=== PATIENT | female | born 1970 | race African-American/Black ===

== ENCOUNTER 2017-02-12 22:39 | Emergency (ER) | payer BC, MEDICAID, OTHER ==
[2017-02-12] MEDS ORDERED: Famotidine 20 MG Tab PO ONE (22:44)
--- NOTE | 2017-02-12 22:45 | EDM.PDOC ---
ED HPI Allergic Reaction - General Chief Complaint: Allergic Reaction Stated Complaint: RASH Time Seen by Provider: 02/12/17 22:45 Source of Information: Reports: Patient - History of Present Illness INITIAL COMMENTS - FREE TEXT/NARRATIVE: HISTORY AND PHYSICAL: History of present illness: [] Patient presents with 4-5 days of urticaria and itchy rash that began after eating ice cream, she does not contribute to any new clothes other foods or detergents No fever nausea vomiting chills sweats no chest pain shortness breath headache dizziness or palpitation no stridor no lip swelling tongue swelling or oral pharyngeal edema Patient has tried oral Benadryl at 12 mg x1 , she becomes quite drowsy even at this low dose Review of systems: As per history of present illness and below otherwise all systems reviewed and negative. Past medical history: As per history of present illness and as reviewed below otherwise noncontributory. Surgical history: As per history of present illness and as reviewed below otherwise noncontributory. Social history: No reported history of drug or alcohol abuse. Family history: As per history of present illness and as reviewed below otherwise noncontributory. Physical exam: HEENT: Atraumatic, normocephalic, pupils reactive, negative for conjunctival pallor or scleral icterus, mucous membranes moist, throat clear, neck supple, nontender, trachea midline. No lip swelling tongue swelling or oral pharyngeal edema Lungs: Clear to auscultation, breath sounds equal bilaterally, chest nontender. Heart: S1S2, regular, negative for clicks, rubs, or JVD. Abdomen: Soft, nondistended, nontender. Negative for masses or hepatosplenomegaly. Negative for costovertebral tenderness. Pelvis: Stable nontender. Genitourinary: Deferred. Rectal: Deferred. Extremities: Atraumatic, negative for cords or calf pain. Neurovascular unremarkable. Neuro: Awake, alert, oriented. Cranial nerves II through XII unremarkable. Cerebellum unremarkable. Motor and sensory unremarkable throughout. Exam nonfocal. Diagnostics: [] Therapeutics: [] Famotidine 20 mg by mouth now Solu-Medrol 125 mg IM, patient request Zantac 150 mg by mouth twice a day Benadryl 50 mg every 6 EpiPen provided via prescription Impression: [] Urticaria Definitive disposition and diagnosis as appropriate pending reevaluation and review of above. - Related Data Allergies/ADRs: Allergies Allergy/AdvReac Type Severity Reaction Status Date / Time aspirin Allergy Swelling Verified 02/12/17 22:43 Home Meds: Home Meds . [No Known Home Meds] 02/12/17 [History] ED ROS ALLERGIC REACTION - Review of Systems Review Of Systems: ROS reveals no pertinent complaints other than HPI. ED EXAM GENERAL NO PERIP PULSE - Physical Exam Exam: See Below Course - Vital Signs Last Recorded V/S: Last Vital Signs Temp 36.6 C 02/12/17 22:41 Pulse 97 02/12/17 22:41 Resp 16 02/12/17 22:41 BP 135/71 02/12/17 22:41 Pulse Ox 97 02/12/17 22:41 - Orders/Labs/Meds Orders: Active Orders 24 hr Category Date Time Status methylPREDNISolone Sod Succ [Solu-MEDROL] Med 02/12/17 23:00 Once 125 mg IM ONETIME ONE Meds: Medications Discontinued Medications Generic Name Dose Route Start Last Admin Trade Name Freq PRN Reason Stop Dose Admin Famotidine 20 mg 02/12/17 22:44 02/12/17 22:51 Pepcid PO 02/12/17 22:45 20 mg ONETIME ONE Administration Departure - Departure Time of Disposition: 23:02 Disposition: Home, Self-Care 01 Condition: good Clinical Impression: Urticaria Additional Instructions: Zantac 150 mg by mouth twice a day as needed Benadryl 50 mg every 6 hours as tolerated EpiPen prescription provided Return if lip swelling tongue swelling or difficulty breathing If you would have to use the EpiPen return to emergency room immediately Followup with primary care in 2 weeks Consider allergy testing The following information is given to patients seen in the emergency department who are being discharged to home. This information is to outline your options for follow-up care. We provide all patients seen in our emergency department with a follow-up referral. The need for follow-up, as well as the timing and circumstances, are variable depending upon the specifics of your emergency department visit. If you don't have a primary care physician on staff, we will provide you with a referral. We always advise you to contact your personal physician following an emergency department visit to inform them of the circumstance of the visit and for follow-up with them and/or the need for any referrals to a consulting specialist. The emergency department will also refer you to a specialist when appropriate. This referral assures that you have the opportunity for follow-up care with a specialist. All of these measure are taken in an effort to provide you with optimal care, which includes your follow-up. Under all circumstances we always encourage you to contact your private physician who remains a resource for coordinating your care. When calling for follow-up care, please make the office aware that this follow-up is from your recent emergency room visit. If for any reason you are refused follow-up, please contact the [facility] emergency department at and asked to speak to the emergency department charge nurse. - My Orders Last 24 Hours: My Active Orders 02/12/17 23:00 methylPREDNISolone Sod Succ [Solu-MEDROL] 125 mg IM ONETIME ONE - Assessment/Plan Last 24 Hours: My Active Orders 02/12/17 23:00 methylPREDNISolone Sod Succ [Solu-MEDROL] 125 mg IM ONETIME ONE
[2017-02-12] MEDS ORDERED: methylPREDNISolone Sodium Succinate 125 MG/2 ML SDV IM ONE (23:00)
[2017-02-12 23:40] VITALS: BP 129/60
== END 2017-02-12 23:35 | disposition home or self-care (01) ==
LOC: MW.ED 22:39
DX: L50.9 Urticaria, unspecified (principal); Z88.6 Allergy status to analgesic agent
CPT/HCPCS: 96372; 99282; A9270; J2930; 99283